=== PATIENT | female | born 1975 | race Caucasian/White ===

== ENCOUNTER 2019-07-03 00:21 | Emergency (ER) | payer OTHER, SELFPAY ==
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
[2019-07-03 00:42] VITALS: BP 141/95; PULSE 83; RESP 14; TEMP 36.4; O2SAT 100
[2019-07-03] MEDS: TETANUS,DIPHTHERIA,AC PERTUSSIS ADULT (0.5 ML) BOOSTRIX IM (01:03)
[2019-07-03 01:11] VITALS: BP 131/83; PULSE 81; RESP 12; O2SAT 100
== END 2019-07-03 01:14 | disposition home or self-care (01) ==
LOC: ANHED 00:48
PROVIDERS: Emergency Provider Emergency Medicine
DX: S41.012A Laceration without foreign body of left shoulder, initial encounter (principal); Z23 Encounter for immunization; W26.0XXA Contact with knife, initial encounter; Z91.5 Personal history of self-harm
CPT/HCPCS: 12001; 90471; 90715; 99282

== ENCOUNTER 2021-06-05 04:31 | Emergency (ER) | payer OTHER, SELFPAY ==
[2021-06-05 04:36] VITALS: BP 147/84; PULSE 81; RESP 18; TEMP 36.3; O2SAT 100
--- NOTE | 2021-06-05 04:54 | PC.NURSE ---
ERP was in room and assessed patient. Patient was tearful and did admit to the lac being of self harm, therapeutic self harm gone wrong. Patient denies any SI or HI, scores no risk on [place]. ERP stated patient does not need sitter at this time. Patient to have labs drawn and to be medically cleared to be seen by crisis. Patient aware and okay with plan of care.
--- NOTE | 2021-06-05 04:55 | ED.GENADULT ---
HPI - General Adult General Chief complaint: Wound/Laceration <Silvio Patiño MD - Last Filed: 06/05/21 18:56> Stated complaint: Laceration l arm <Silvio Patiño MD - Last Filed: 06/05/21 18:56> Time Seen by Provider: 06/05/21 04:40 <Silvio Patiño MD - Last Filed: 06/05/21 18:56> Source: patient <Silvio Patiño MD - Last Filed: 06/05/21 18:56> History of Present Illness HPI narrative: 46-year-old female presents the emergency department for evaluation of a self-inflicted laceration to her left arm. Patient states that she was drinking tonight. Patient states that she does have a history of cutting. Patient states that she was just attempting to relieve stress and did not realize that the knife was as sharp as it was and patient states she cut too deeply. Patient patient does have a large number of scars on her left arm. Patient states she does feel safe at home. Patient denies any suicidal ideation. Patient was offered evaluation by the crisis counselor and patient is willing to stay to be evaluated. Patient is intoxicated and was informed that she would have to be sober in order to be evaluated by the crisis counselor. At this time patient is comfortable with the plan. Patient is tearful, very polite and very cooperative. <Silvio Patiño MD - Last Filed: 06/05/21 18:56> Related Data Allergies/adverse reactions: Allergies Allergy/AdvReac Type Severity Reaction Status Date / Time No Known Allergies Allergy Verified 06/05/21 04:43 <Silvio Patiño MD - Last Filed: 06/05/21 18:56> Review of Systems Review of Systems: CONSTITUTIONAL: Denies fever, chills, or sweats. EYES: Denies visual changes, redness, or discharge. ENT: Denies rhinorrhea, congestion, sore throat, or otalgia. CARDIOVASCULAR: Denies chest pain, palpitations, or edema. RESPIRATORY: Denies cough or dyspnea. GASTROINTESTINAL: Denies abdominal pain, nausea, vomiting, or diarrhea. GENITOURINARY: Denies dysuria or hematuria. SKIN: Laceration to left arm, self-inflicted. MUSCULOSKELETAL: Denies back pain, joint pain, or myalgia. NEUROLOGIC: Denies headache, numbness, or weakness. PSYCHIATRIC: Denies homicidal or suicidal ideation at this point. <Silvio Patiño MD - Last Filed: 06/05/21 18:56> PMFSH Past Medical History Medical History: Medical History (Updated 06/05/21 @ 05:54 by Silvio Patiño MD) Deliberate self-cutting Depression Plantar fasciitis <Silvio Patiño MD - Last Filed: 06/05/21 18:56> Social History Social History: Social History (Updated 07/03/19 @ 00:43 by Yany Young MD) Smoking status: Never smoker Alcohol intake: current Drinks per week: 5 Substance use: never Gender identity (if verbalized by the patient): Female <Silvio Patiño MD - Last Filed: 06/05/21 18:56> Exam Narrative: APPEARANCE: Well appearing, no pain, no distress, well-nourished. HEAD: normocephalic, atraumatic. EYES: PERRLA/EOMI, conjunctivae clear. NOSE: Normal no drainage NECK: Supple. No adenopathy, no masses. RESPIRATORY: Airway patent, respirations nonlabored. Clear to auscultation bilaterally, no rales, rhonchi, wheezing. CARDIOVASCULAR: Regular rate and rhythm without murmurs rubs or gallops. ABDOMINAL: Soft, nontender, nondistended, normal bowel sounds MUSCULOSKELETAL: Moves all extremities. Left arm is neurovascularly intact NEURO: Alert. Cranial nerves II through XII intact. Good gait. Good coordination SKIN: 6 cm laceration through skin into adipose proximal left forearm. Bleeding resolved upon arrival to the emergency department PSYCHIATRIC: Normal affect/mood. <Silvio Patiño MD - Last Filed: 06/05/21 18:56> Course Course Emergency Course: Patient is willing to stay for evaluation by the crisis counselor. Laceration was repaired as described above. Patient care will be signed out to Dr. Mclaughlin with evaluation by the crisis counselor pending. Anticip
[2021-06-05 05:15] LABS: Basophils Percent Auto 0.6 % (0.2-1.2); Eosinophils Absolute Auto 0.2 K/mm3 (0-0.3); Eosinophils Percent Auto 2.1 % (0-4.4); Hematocrit 38.9 % (37.0-47.0); Hemoglobin 12.7 g/dL (12.0-15.0); Immature Granulocyte Absolute 0.03 K/mm3 (0.00-0.031); Immature Granulocyte Percent A 0.4 % (0-0.5); Lymphocytes Absolute Auto 2.11 K/mm3 (0.9-3.2); Lymphocytes Percent Auto 29.3 % (18.3-44.2); Mean Corpuscular HGB Conc 32.6 g/dl (32-36); Mean Corpuscular Volume 88.8 fl (80-100); Mean Platelet Volume 9.2 fl (7.4-10.4); Monocytes Absolute Auto 0.4 K/mm3 (0.1-0.6); Neutrophils Absolute Auto 4.4 K/mm3 (1.3-6.7); Neutrophils Percent Auto 61.6 % (45.5-73.1); Platelet Count Result 283 k/mm3 (150-375); Red Blood Count 4.38 M/mm3 (4.2-5.4); Red Cell Distribution Width 12.1 % (11.5-14.5); White Blood Count 7.2 K/mm3 (4.5-10.0)
[2021-06-05 05:29] LABS: Acetaminophen < 10 ug/mL (10-30); Alanine Aminotransferase 18 U/L (4-35); Albumin Level 4.4 g/dL (3.5-5.1); Alkaline Phosphatase 93 U/L (38-126); Anion Gap 8 mmol/L (8-16); Aspartate Amino Transferase 31 U/L (14-36); Bilirubin,Total 0.3 mg/dL (0.2-1.3); Blood Urea Nitrogen 16 mg/dL (7-17); Calcium 8.9 mg/dL (8.4-10.2); Carbon Dioxide 27 mmol/L (22-30); Chloride 106 mmol/L (98-107); Estimated CRCL calculation 84 ml/min; Estimated Glomerular Filt Rate > 60; Ethanol 145 mg/dL (<10); Glucose 117 mg/dL (65-110); Potassium 3.4 mmol/L (3.4-5.0); Salicylate < 1.0 mg/dL (2-20); Sodium 141 mmol/L (137-145)
[2021-06-05 05:35] LABS: Add Urine Microscopic? YES; Appearance Urine Clear (Clear); Bilirubin Urine Negative (Negative); Blood Urine 2+ (Negative); Color Urine Colorless (Yellow); Glucose Urine UA Negative (Negative); Ketones Urine Negative (Negative); Leukocyte Esterase Ur Negative LEU/UL (Negative); Mucus Urine Rare /lpf; Nitrate Urine Negative (Negative); Protein Urine Negative (Negative); RBC Urine 0-2 /hpf (0-2); Squamous Epithelial Cell Urine Rare /hpf (Few); Urobilinogen Urine Negative mg/dL (<2.0); WBC Urine 0-3 /hpf
[2021-06-05 05:48] LABS: Amphetamine Screen Urine Negative (Negative); Barbiturate Screen Urine Negative (Negative); Benzodiazepines Screen Urine Negative (Negative); Cannabinoid Screen Urine Negative (Negative); Cocaine Screen Urine Negative (Negative); Methadone Screen Urine Negative (Negative); Opiate Screen Urine Negative (Negative); Phencyclidine Screen Urine Negative (Negative)
[2021-06-05 05:49] LABS: Specific Grav Ur 1.002 (1.001-1.035)
[2021-06-05 06:39] VITALS: BP 107/60; PULSE 86; RESP 17; O2SAT 99
[2021-06-05 08:28] LABS: Ethanol 72 mg/dL (<10)
[2021-06-05 09:05] LABS: Pregnancy On Board Control Positive; Urine Pregnancy Test Negative
[2021-06-05 09:37] LABS: SARS-CoV-2 RNA PCR Negative
[2021-06-05 11:49] VITALS: BP 154/85; PULSE 72; RESP 16; O2SAT 99
== END 2021-06-05 12:30 | disposition home or self-care (01) ==
PROVIDERS: Emergency Medicine; Emergency Provider Emergency Medicine
DX: S51.812A Laceration without foreign body of left forearm, initial encounter (principal); F10.10 Alcohol abuse, uncomplicated; Y90.6 Blood alcohol level of 120-199 mg/100 ml; R45.88 Nonsuicidal self-harm; Z20.822 Contact with and (suspected) exposure to COVID-19; W26.0XXA Contact with knife, initial encounter
CPT/HCPCS: 12002; 36415; 80053; 80307; 81001; 81025; 84443; 85025; 99284; C9803; U0003; U0005

== ENCOUNTER 2021-08-23 06:39 | Emergency (ER) | payer OTHER, SELFPAY ==
--- NOTE | ~2021-08-23 | CT_ITS ---
EXAMINATION: CT brain wo con DATE: 08/23/2021 07:14 INDICATION: Atypical headache. TECHNIQUE: Computed tomography (CT) of the head was performed without intravenous contrast. The mA wa s adjusted according to patient size. Iterative reconstruction technique was employed. The dose-lengt h product was 605.33 mGy-cm. COMPARISON: None FINDINGS: There is no intracranial hemorrhage, acute infarction, or abnormal intracranial mass lesion . The ventricles are normal in size. The orbits are normal. There is mild mucosal thickening in the p aranasal sinuses. The mastoid air cells are normal. IMPRESSION: 1. Normal brain. Reviewed, dictated and finalized at location A. IMPRESSION: 1. Normal brain.
[2021-08-23 06:41] VITALS: BP 149/88; PULSE 103; RESP 18; TEMP 36.3; O2SAT 100
--- NOTE | 2021-08-23 07:03 | ED.GENADULT ---
HPI - General Adult General Chief complaint: Headache Stated complaint: headache Time Seen by Provider: 08/23/21 06:51 History of Present Illness HPI narrative: 46-year-old female presenting to the emergency department for evaluation of headache. Patient states she started developing a headache while at rest last night. Patient describes the headache as involving her eyes head and does radiate to her neck. Patient does report some photosensitivity. Patient denies any associated nausea vomiting. Patient states she does have a rare history of headaches but this is not similar to her typical headache. Patient denies any fevers. Patient denies any recent illnesses. Patient denies any associated numbness or weakness Related Data Allergies Allergy/AdvReac Type Severity Reaction Status Date / Time No Known Allergies Allergy Verified 08/23/21 06:45 Review of Systems Review of Systems: CONSTITUTIONAL: Denies fever, chills, or sweats. EYES: Denies visual changes, redness, or discharge. ENT: Denies rhinorrhea, congestion, sore throat, or otalgia. CARDIOVASCULAR: Denies chest pain, palpitations, or edema. RESPIRATORY: Denies cough or dyspnea. GASTROINTESTINAL: Denies abdominal pain, nausea, vomiting, or diarrhea. GENITOURINARY: Denies dysuria or hematuria. SKIN: Denies rash or itching. MUSCULOSKELETAL: Denies back pain, joint pain, or myalgia. NEUROLOGIC: See HPI [facility] Past Medical History Medical History (Updated 08/23/21 @ 09:01 by Silvio Patiño MD) Deliberate self-cutting Depression Plantar fasciitis Social History Social History (Updated 07/03/19 @ 00:43 by Yany Young MD) Smoking status: Never smoker Alcohol intake: current Drinks per week: 5 Substance use: never Gender identity (if verbalized by the patient): Female Exam Narrative: APPEARANCE: Uncomfortable due to headache HEAD: normocephalic, atraumatic. EYES: PERRLA/EOMI, conjunctivae clear. NOSE: Normal no drainage EARS:TMS clear with good light reflex. THROAT: Pharynx clear, no exudate. NECK: Supple. No adenopathy, no masses. No meningeal signs RESPIRATORY: Airway patent, respirations nonlabored. Clear to auscultation bilaterally, no rales, rhonchi, wheezing. CARDIOVASCULAR: Regular rate and rhythm without murmurs rubs or gallops. ABDOMINAL: Soft, nontender, nondistended, normal bowel sounds MUSCULOSKELETAL: Moves all extremities. Strength/ROM intact, delete this NEURO: Alert. Cranial nerves II through XII intact. Normal strength and reflexes. Normal coordination. No ataxia SKIN: Warm, dry. Normal Color Course Course Emergency Course: Patient had a negative head CT. Patient does report significant improvement with the medications. Patient is declining any additional medications and states she does feel improved enough for discharge to home. All questions concerns were addressed. Patient was comfortable with the plan for discharge and close follow-up. Vital Signs Vital signs: Vital Signs Temperature 97.4 F L 08/23/21 06:41 Pulse Rate 103 H 08/23/21 06:41 Respiratory Rate 18 08/23/21 06:41 Blood Pressure 149/88 H 08/23/21 06:41 Pulse Oximetry 100 08/23/21 06:41 Oxygen Delivery Room Air 08/23/21 06:41 Temperature 97.4 F L 08/23/21 07:54 Pulse Rate 96 08/23/21 09:26 Respiratory Rate 16 08/23/21 09:26 Blood Pressure 140/71 08/23/21 09:26 Pulse Oximetry 98 08/23/21 09:26 Oxygen Delivery Room Air 08/23/21 06:41 Medical Decision Making Vital Signs Vital Signs: Vital Signs Temperature 97.4 F L 08/23/21 06:41 Pulse Rate 103 H 08/23/21 06:41 Respiratory Rate 18 08/23/21 06:41 Blood Pressure 149/88 H 08/23/21 06:41 Pulse Oximetry 100 08/23/21 06:41 Oxygen Delivery Room Air 08/23/21 06:41 Temperature 97.4 F L 08/23/21 07:54 Pulse Rate 96 08/23/21 09:26 Respiratory Rate 16 08/23/21 09:26 Blood Pressure 140/71 08/23/21 09:26 Pulse Oximetry 98
[2021-08-23] MEDS: SODIUM CHLORIDE 0.9% IV 1,000 ML 999 ML IV CONT (07:21)
[2021-08-23] MEDS: PROCHLORPERAZINE EDISYLATE 10 MG/2 ML VIAL IV PUSH (07:22)
[2021-08-23] MEDS: diphenhydrAMINE HCl INJ 50 MG/ML VIAL 25 MG IV PUSH (07:22)
[2021-08-23] MEDS: KETOROLAC 15 MG/ML VIAL (*BKC) IV PUSH (07:24)
--- NOTE | 2021-08-23 07:30 | PC.NURSE ---
Compazine given slow IV infusion with normal saline
[2021-08-23 07:54] VITALS: TEMP 36.3
[2021-08-23 09:26] VITALS: BP 140/71; PULSE 96; RESP 16; O2SAT 98
== END 2021-08-23 09:28 | disposition home or self-care (01) ==
PROVIDERS: Emergency Provider Emergency Medicine
DX: R51.9 Headache, unspecified (principal)
CPT/HCPCS: 70450; 96361; 96374; 96375; 99284; J0780; J1200; J1885; J7030